=== PATIENT | male | born 1945 | race Caucasian/White ===

== ENCOUNTER 2022-01-18 14:36 | Emergency (ER) | payer OTHER ==
[~2022-01-18] VITALS: Ht 190.5 cm; Wt 133.8 kg
[~2022-01-18 14:36] MED LIST: NORCO 5-325 TA1 EACH PO
[2022-01-18 15:25] LABS: BASOPHIL 0.3 % (0-2); HCT 46.2 % (42.0-52.0); HGB 16.2 g/dl (13.2-18.0); LYMPHOCYTE 18.7 % (15-48); MCH 31.6 pg (25.0-31.0); MCHC 35.1 g/dL (32.0-36.0); MCV 90.2 fL (78.0-100.0); MONOCYTE 8.1 % (0-12); MPV 11.2 fL (6.0-9.5); NEUTROPHIL 71.5 % (41-80); NRBC 0; PLT 158 K/uL (150-400); RBC 5.12 M/uL (4.70-6.00); RDW 12.6 % (11.5-14.0)
[2022-01-18 15:52] LABS: ALBUMIN 3.5 g/dL (3.4-5.0); BILIRUBIN - TOTAL 0.6 mg/dL (0.2-1.0); BUN/CREAT RATIO (CALC) 12.7 RATIO; CREATININE 1.58 mg/dL (0.67-1.17); GLOBULIN (CALCULATION) 3.5 g/dL; POTASSIUM 4.1 mmol/L (3.5-5.1)
[2022-01-18 18:04] LABS: BILIRUBIN NEGATIVE (NEGATIVE); BLOOD 3+ Ery/uL (NEGATIVE); CLARITY HAZY (CLEAR); COLOR YELLOW (YELLOW); GLUCOSE (U) NORMAL (NORMAL); LEUKOCYTES NEGATIVE Leu/uL (NEGATIVE); NITRITE NEGATIVE (NEGATIVE); PROTEIN NEGATIVE (NEGATIVE); SPECIFIC GRAVITY 1.015 (1.001-1.030); UROBILINOGEN 0.2 mg/dL (0.2-1.0)
[2022-01-18 18:12] LABS: BACTERIA TRACE; URINARY RBC TNTC
[2022-01-18] MEDS ORDERED: CIPRO500 MG PO (18:53)
== END 2022-01-18 19:25 | disposition home or self-care (01) ==
LOC: FER 14:36
PROVIDERS: Nurse Practitioner Family
DX: N39.0 Urinary tract infection, site not specified (principal); N28.1 Cyst of kidney, acquired; R11.2 Nausea with vomiting, unspecified; I10 Essential (primary) hypertension
CPT/HCPCS: 36415; 80053; 81001; 82150; 83690; 84153; 85025; J1885; J2405; J7030